=== PATIENT | male | born 1965 | race Caucasian/White ===

== ENCOUNTER 2017-10-28 01:55 | Emergency (ER) | payer BC ==
[~2017-10-28] VITALS: Ht 185.4 cm; Wt 104.9 kg
[~2017-10-28 01:55] MED LIST: AZEL0.15 NAE; CLR/5 PO; MOME50SP5 NAE
[2017-10-28 01:57] VITALS: TEMP 36.4; Ht 185.4 cm; Wt 104.9 kg
[2017-10-28] MEDS ORDERED: PRED50TA PO (02:12)
[2017-10-28] MEDS ORDERED: AMOX875T PO (02:12)
[2017-10-28] MEDS ORDERED: DEXAMETHASONE **PF** INJ 10 MG/ML VIAL PO ONE (02:15)
[2017-10-28] MEDS ORDERED: AMOXICIL/CLAVU 875MG HOME PACK PO ONE (02:15)
[2017-10-28] MEDS ORDERED: DEXAMETHASONE **PF** INJ 10 MG/ML VIAL IV ONE (02:15)
[2017-10-28] MEDS ORDERED: DESL1TAB5 PO (02:18)
[2017-10-28] MEDS ORDERED: MOME6000 NAE (02:18)
[2017-10-28] MEDS ORDERED: ASTN NAE (02:20)
[2017-10-28 02:23] VITALS: BP 122/74; PULSE 78; O2SAT 99
--- NOTE | 2017-10-28 02:47 | EMERGENCY ROOM VISIT NOTE ---
History First contact with patient: 02:01 Chief Complaint: CONGESTION Stated Complaint: CONGESTION History of Present Illness The patient is a 52 year old male who presents to the Emergency Room with complaints of sinus pain and congestion with postnasal drip for the past week with subjective fever and chills. Patient has a history of sinus infections and symptoms feel similar. He does not currently have an ENT doctor. He used to. He has had nasopharyngeal scoops before with surgery. Patient denies severe headache, neck status, sore throat, chest pain, dyspnea, cough, earache. Patient is tolerating by mouth fluids and food. Review of Systems See HPI for pertinent positives & negatives. A total of 10 systems reviewed and were otherwise negative. Past Medical/Surgical History Medical Problems: (1) Asthma (2) Sinus infection Family History No significant family history Social History Smoking Status: Never Smoker Alcohol Use: none Drug Use: none Marital Status: Housing Status: lives with significant other Occupation Status: employed Current/Historical Medications Scheduled Azelastine Hcl (Astelin Nasal [place]), 2 SPRAYS ANGELITA QAM Budesonide/Formoterol Fumarate (Symbicort 160/4.5 Inhaler ), 2 PUFFS INH QAM Desloratadine (Desloratadine), 5 MG PO QAM Mometasone Furoate (Nasal) (Mometasone Furoate), 1 SPRAY ANGELITA QAM Prednisone (Prednisone), 50 MG PO DAILY Physical Exam Vital Signs Date Time Temp Pulse Resp B/P (MAP) Pulse Ox O2 Delivery O2 Flow Rate FiO2 10/28/17 02:23 78 16 122/74 99 10/28/17 02:12 98 Room Air 10/28/17 01:57 36.4 75 18 135/98 95 Room Air Physical Exam VITALS: Vitals are noted on the nurse's note and reviewed by myself. Vital signs stable. GENERAL: Pleasant male, in no acute distress, nondiaphoretic, well-developed well-nourished. SKIN: The skin was without rashes, erythema, edema, or bruising. There is no tenting of the skin. Capillary reflex less than 2 seconds. HEAD: Normocephalic atraumatic. EARS: External auditory canals clear, tympanic membranes pearly olvera without erythema or effusion bilaterally. EYES: Pupils equal round and reactive to light and accommodation. Conjunctivae without injection, sclerae without icterus. Extraocular movements intact. NOSE: Patent, turbinates without inflammation or discharge. Bilateral sinus tenderness. MOUTH: Mucous membranes moist. Pharynx without erythema or exudate. Uvula midline. Airway patent. Tongue does not deviate. NECK: Supple without nuchal rigidity. No lymphadenopathy. No thyromegaly. Cervical spine is nontender. No JVD. HEART: Regular rate and rhythm without murmurs gallops or rubs. LUNGS: Clear to auscultation bilaterally without wheezes, rales or rhonchi. No dullness to percussion. No retractions or accessory muscle use. ABDOMEN: Positive bowel sounds x 4. Normal tympanic percussion. Soft, nontender, without masses or organomegaly. Amezcua sign negative. No guarding or rebound tenderness. MUSCULOSKELETAL: No muscle atrophy, erythema, or edema noted. NEURO: Patient was alert and oriented to person place and time. Normal sensation to light and sharp touch. No focal neurological deficits. Medical Decision & Procedures Medications Administered Medications (Trade) Dose Ordered Sig/Carloz Route Start Time Stop Time Status Last Admin Dose Admin Amoxicillin/ Clavulanate Potassium (Augmentin 875MG Home Pack) 1 homepack UD ONCE PO 10/28/17 02:15 10/28/17 02:16 DC 10/28/17 02:19 1 HOMEPACK Dexamethasone Sodium Phosphate (Dexamethasone Inj Pf) 10 mg NOW ONCE PO 10/28/17 02:15 10/28/17 02:16 DC 10/28/17 02:19 10 MG ED Course Prior records reviewed and summarized as above. Triage Nursing notes reviewed. The patient's history was concerning for sinus pain and congestion. Differential diagnosis: Etiologies such as sinusitis, bronchitis, pneumonia, pharyngitis, otitis, viral infection, influenza, as well as others were entertained.. Physical examination: The physical examination was consistent with sinusitis ER treatment provided: Augmentin, Decadron On reassessment the patient felt better. Diagnostics interpreted by me: Deferred This appears to be sinusitis. This is a recurrent problem for the patient. He was offered referral to ENT but declined. He states he will have his family care doctor refer him. He was counseled on medications and on supportive measures. He verbalized understanding this. He was advised follow-up with family care in a few days or here in the ER sooner for headache, fevers, neck stiffness, worsening signs or symptoms or as needed. Patient was neurovascularly and neurologically intact. No signs of meningitis or airway compromise. By the evaluation outlined above emergent etiologies such as pneumonia, meningitis, as well as others were deemed relatively unlikely. The pt informed about the findings as listed above. All questions were answered and pleased with the treatment. Return instructions were outlined and the patient was discharged in stable condition. Outpatient prescription management: Augmentin, prednisone Referral: The patient was referred back to primary care physician for follow-up in 2 to 3 days for a recheck of the current condition. The chart was completed utilizing [employer] Speech voice recognition software. Grammatical errors, random word insertions, pronoun errors, and incomplete sentences are an occassional consequence of this system due to software limitations, ambient noise, and hardware issues. Any formal questions or concerns about the content, text, or information contained within the body of this dictation should be directly addressed to the physician marketing assistant for clarification. Medical Decision As above Medication Reconcilliation Current Medication List: was personally reviewed by me Blood Pressure Screening Patient's blood pressure: Normal blood pressure Impression Primary Impression: Sinusitis, acute Departure Information Dispostion Home / Self-Care Condition GOOD Prescriptions Prednisone (Prednisone) 50 Mg Tab 50 MG PO DAILY for 4 Days, #4 TAB Prov: Kassie Arriola .JAY JAY 10/28/17 Forms HOME CARE DOCUMENTATION FORM, IMPORTANT VISIT INFORMATION Patient Instructions Sinusitis Acute, My [facility] Additional Instructions Prednisone 50mg: Once daily until the prescription is finished. It is best to take this earlier in the day as some patients note occasional difficulty falling asleep when taken in the late evening. Started this Friday. Augmentin 875 mg: Take one tablet twice a day for 10 days. All antibiotics can cause diarrhea. If this occurs and you feel worse or it does not resolve in 1-2 days follow up with your doctor or return to the Emergency Department as this could be signs of serious underlying problems. Any medication can cause an allergic reaction, stop the pills immediately and return to the ER for rash, hives, breathing difficulties, or swelling. Acetaminophen(Tylenol) may be used for fever or pain. Use 1000mg every six hours as needed. Avoid using more than 3000mg in a 24 hour period. (AND/OR) Ibuprofen(Motrin, Advil) may be used for fever or pain. Use 600mg every six hours as needed. Take with food. Avoid using more than 2400mg in a 24 hour period. Do not use 2400mg per day for more than three consecutive days without physician direction. Prolonged inappropriate use can lead to stomach upset or ulcers. Afrin nasal spray: 2-3 sprays to each nostril twice daily as needed for congestion. Do not use for more than 3-4 days because it can lead to worsening rebound congestion. Pseudoephedrine(Sudaphed): 30-60mg every 6 hours as needed for nasal congestion. Do not take this with other stimulant products or supplements. Albuterol Inhaler: Take 2 puffs four times daily for seven days, then as needed. Rest and drink plenty of fluids. Controlling your fever with Tylenol and Ibuprofen as above will make you feel better. Wash your hands after nose blowing, sneezing, or coughing. Most germs are spread through contact, therefore improper hygiene may result in your close contacts and loved ones becoming ill just like you. Continue current medications. Return to the ER for severe headache, neck stiffness, chest pain, difficulty breathing, fevers, vomiting, worsening of your condition, or as needed. Follow up with your primary physician this week for a recheck of your current condition. Problem Qualifiers Primary Impression: Sinusitis, acute Sinusitis location: maxillary Recurrence: recurrent Qualified Codes: J01.01 - Acute recurrent maxillary sinusitis
[2017-10-28] MEDS ORDERED: SYMIN160 INH (16:03)
== END 2017-10-28 02:24 | disposition home or self-care (01) ==
LOC: C.EDB 01:56
DX: J01.90 Acute sinusitis, unspecified (principal); J45.909 Unspecified asthma, uncomplicated; Z79.899 Other long term (current) drug therapy

== ENCOUNTER 2017-12-05 18:05 | Emergency (ER) | payer BC ==
[~2017-12-05] VITALS: Ht 185.4 cm; Wt 106.0 kg
[~2017-12-05 18:05] MED LIST changes: +ASTN NAE; -AZEL0.15 NAE; -CLR/5 PO; +DESL1TAB5 PO; -MOME50SP5 NAE; +MOME6000 NAE; +SYMIN160 INH
[2017-12-05 18:13] VITALS: TEMP 36.7; Ht 185.4 cm; Wt 106.0 kg
[2017-12-05] MEDS ORDERED: ALBUT/IPRATROP 3MG/0.5MG NEB 3 ML VIAL INH STA (18:25)
[2017-12-05] MEDS ORDERED: DOXYCYCLINE HYCLATE 100 MG CAP PO ONE (18:30)
[2017-12-05] MEDS ORDERED: OXYC-106 PO (18:34)
[2017-12-05] MEDS ORDERED: GABA1CAP4 PO (18:34)
--- NOTE | 2017-12-05 18:34 | EMERGENCY ROOM VISIT NOTE ---
History Report prepared by Petr: Broderick Yanes Under the Supervision of: Dr. Brian Edward M.D. First contact with patient: 18:16 Chief Complaint: CONGESTION Stated Complaint: CHEST CONGESTION History of Present Illness The patient is a 52 year old male who presents to the Emergency Room with complaints of worsening chest congestion and shortness of breath that he has been dealing with for roughly 1 month. The patient states that he came into the emergency department on 10/28 for similar symptoms. He was placed on an Augmentin and Prednisone following this visit. Over the past day or two he has experienced worsening "weight in his chest" and he is feeling like he cannot catch his breath. He has had a dry cough for the past month, which became wet and productive over the past couple of days. He has had sinus surgery in the past and can feel sinus drainage down the back of his throat. He does have Albuterol Nebulizers at home and has been using them more frequently lately. The patient is also currently taking Gabapentin and Oxycodone secondary to a shingles diagnosis. He has a history of allergy-induced asthma. Source of History: patient Onset: 1 month Position: other (Respiratory) Quality: other (SOB, weight on the chest) Timing: worsening ((for past couple of days)) Associated Symptoms: + cough, + back pain ((shingles)) Review of Systems See HPI for pertinent positives & negatives. A total of 10 systems reviewed and were otherwise negative. Past Medical & Surgical Medical Problems: (1) Asthma (2) Sinus infection Family History No significant family history Social History Smoking Status: Never Smoker Alcohol Use: none Drug Use: none Marital Status: Housing Status: lives with significant other Occupation Status: employed Current/Historical Medications Scheduled Azelastine Hcl (Astelin Nasal [place]), 2 SPRAYS ANGELITA QAM Budesonide/Formoterol Fumarate (Symbicort 160/4.5 Inhaler ), 2 PUFFS INH QAM Doxycycline Hyclate (Vibramycin), 100 MG PO BID Gabapentin (Gabapentin), 300 MG PO DIRECTED Mometasone Furoate (Nasal) (Mometasone Furoate), 1 SPRAY ANGELITA QAM Prednisone (Prednisone), 0 PO DAILY Scheduled PRN Oxycodone/Acetaminophen 10MG/325MG (Percocet 10MG/325MG), 1 TAB PO Q6 PRN for Pain Allergies Coded Allergies: BEE STING (Verified Allergy, Intermediate, RASH,HIVES, 12/05/17) Sulfa Drugs (Verified Allergy, Intermediate, RASH, 12/05/17) Physical Exam Vital Signs Date Time Temp Pulse Resp B/P (MAP) Pulse Ox O2 Delivery O2 Flow Rate FiO2 12/05/17 19:34 95 20 139/93 93 12/05/17 18:32 95 Room Air 12/05/17 18:13 36.7 85 20 151/104 92 Room Air Physical Exam GENERAL: Patient is in no acute distress. HEENT: No acute trauma, normocephalic atraumatic, mucous membranes moist, no nasal congestion, no scleral icterus. There is no throat erythema or exudate. NECK: No stridor, no adenopathy, no meningismus, trachea is midline. LUNGS: There is wheezing throughout bilaterally. No respiratory distress on exam. No rales or crackles. Breath sound are equal bilaterally. HEART: Without murmurs gallops or rubs, regular rate and rhythm. ABDOMEN: Soft, nontender, bowel sounds positive, no hernias, no peritonitis. EXTREMITIES: No cyanosis or edema, full range of motion of all the joints without pain or difficulty, no signs for acute trauma. NEUROLOGIC: Oriented x 3, no acute motor or sensory deficits, no focal weakness. SKIN: There is a faint erythematous, slightly raised and patchy rash to the right thorax. Consistent with healing herpes zoster, no jaundice, no diaphoresis. Medical Decision & Procedures ER Provider Diagnostic Interpretation: Radiology results as stated below per my review and radiologist interpretation: CHEST ONE VIEW PORTABLE CLINICAL HISTORY: 52 years-old Male presenting with cough, fever. TECHNIQUE: Portable upright AP view of the chest was obtained. COMPARISON: 06/06/2016. FINDINGS: Atherosclerosis of the aortic arch. Cardiac silhouette normal in size. Lungs and pleural spaces clear. Osseous structures normal. Upper abdomen normal. IMPRESSION: 1. No acute cardiopulmonary disease. Electronically signed by: Kasi Yates M.D. 12/05/2017 6:55 PM Dictated Date/Time: 12/05/2017 6:55 PM Laboratory Results Test 12/05/17 18:43 Influenza Type A Antigen Neg for Influ A (NEG) Influenza Type B Antigen Neg for Influ B (NEG) Laboratory results reviewed by me. Medications Administered Medications (Trade) Dose Ordered Sig/Carloz Route Start Time Stop Time Status Last Admin Dose Admin Prednisone (PredniSONE TAB) 60 mg NOW STAT PO 12/05/17 18:25 12/05/17 18:28 DC 12/05/17 18:38 60 MG Doxycycline Hyclate (Vibramycin Cap) 100 mg ONE ONCE PO 12/05/17 18:30 12/05/17 18:31 DC 12/05/17 18:38 100 MG Albuterol/ Ipratropium (Duoneb) 3 ml NOW STAT INH 12/05/17 18:25 12/05/17 18:28 DC 12/05/17 18:38 3 ML ED Course 1817: The patient was evaluated in room A12B. A complete history and physical exam was performed. 1824: Ordered Duoneb 3 mL INH, Prednisone 50 mg PO. 1829: Ordered Doxycycline Hyclate 10 mg PO. 1926: Reevaluated the patient. Discussed results and discharge instructions: He verbalized understanding and agreement. The patient is ready for discharge. Medical Decision Differential Diagnosis includes; pneumonia, bronchitis, sinusitis, asthma, influenza, pneumothorax, heart failure. The patient presents with wheezing, he has a bronchitis and asthma history. Chest film was done, there was no pneumonia, a bronchitis type picture was present, no CHF or pneumothorax. Influenza testing was negative. On exam, the patient was not febrile or toxic, he was not hypoxic. The patient was given a DuoNeb, oral prednisone and oral doxycycline. The patient will be discharged on increased albuterol use, a prednisone taper and doxycycline. If worsening, he can return. Outpatient follow-up was suggested. He appears to have an acute bronchitis with a flare of asthma. Antibiotics are indicated as he has been sick for a month. Medication Reconcilliation Current Medication List: was personally reviewed by me Blood Pressure Screening Patient's blood pressure: Elevated blood pressure Blood pressure disposition: Referred to PCP Impression Primary Impression: Asthmatic bronchitis Additional Impression: Exacerbation of asthma Scribe Attestation The scribe's documentation has been prepared under my direction and personally reviewed by me in its entirety. I confirm that the note above accurately reflects all work, treatment, procedures, and medical decision making performed by me. Departure Information Dispostion Home / Self-Care Prescriptions Prednisone (Prednisone) 20 Mg Tab 0 PO DAILY, #18 TAB 3 DAILY FOR 3 DAYS, THEN 2 DAILY FOR 3 DAYS, THEN 1 DAILY FOR 3 DAYS. Prov: Brian Edward M.D. 12/05/17 Doxycycline Hyclate (VIBRAMYCIN) 100 Mg Cap 100 MG PO BID for 10 Days, #20 CAP Prov: Brian Edward M.D. 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
--- NOTE | 2017-12-05 18:56 | DIAGNOSTIC IMAGING REPORT ---
CHEST ONE VIEW PORTABLE CLINICAL HISTORY: 52 years-old Male presenting with cough, fever. TECHNIQUE: Portable upright AP view of the chest was obtained. COMPARISON: 06/06/2016. FINDINGS: Atherosclerosis of the aortic arch. Cardiac silhouette normal in size. Lungs and pleural spaces clear. Osseous structures normal. Upper abdomen normal. IMPRESSION: 1. No acute cardiopulmonary disease. Electronically signed by: Kasi Yates M.D. 12/05/2017 6:55 PM Dictated Date/Time: 12/05/2017 6:55 PM
[2017-12-05 19:21] LABS: INFLUENZA B ANTIGEN Neg for Influ B (NEG)
[2017-12-05] MEDS ORDERED: DOXY100C PO (19:30)
[2017-12-05] MEDS ORDERED: PRED20TA PO (19:30)
[2017-12-05 19:34] VITALS: BP 139/93; PULSE 95; O2SAT 93
== END 2017-12-05 19:35 | disposition home or self-care (01) ==
LOC: C.EDB 18:06 → C.EDA 19:35
DX: J45.901 Unspecified asthma with (acute) exacerbation (principal); Z79.899 Other long term (current) drug therapy